=== PATIENT | female | born 1985 | race African-American/Black ===

== ENCOUNTER 2017-03-12 12:03 | Emergency (ER) | payer OTHER ==
[~2017-03-12] VITALS: Ht 160 cm; Wt 63.5 kg
[2017-03-12 12:22] VITALS: BP 137/76
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
[2017-03-12] MEDS ORDERED: BACITRACIN-P28.35 GM TP (13:08)
[2017-03-12] MEDS ORDERED: CEPHALEXIN500 MG ORAL (13:08)
[2017-03-12] MEDS ORDERED: ROBAXIN-750750 MG PO (13:09)
[2017-03-12 13:25] VITALS: BP 114/79
== END 2017-03-12 13:30 | disposition home or self-care (01) ==
LOC: EMR 12:41
DX: M43.6 Torticollis (principal); S01.01XD Laceration without foreign body of scalp, subsequent encounter; Z48.02 Encounter for removal of sutures
CPT/HCPCS: 99283